=== PATIENT | male | born 2000 | race Caucasian/White ===

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

== ENCOUNTER 2020-03-09 05:03 | Emergency (ER) | payer MEDICAID, SELFPAY ==
[2020-03-09 05:04] VITALS: PULSE 100; RESP 18; TEMP 36.7; O2SAT 98; BMI 64.0
[2020-03-09 05:14] VITALS: BP 147/78
--- NOTE | 2020-03-09 05:17 | ED.VIS.GEN ---
History of Present Illness Chief Complaint: Ear Problem Informant: Patient Narrative: 20-year-old male with history of ear infections presents with left ear pain. Patient states that started about 2 days ago. He is not had a fever. It feels consistent with previous ear infections that he has had. He does not have headache. He states that he has not been swimming but has been using Q-tips. Past Medical History - Allergies and Home Meds Allergies/Adverse Reactions: Allergies No Known Allergies Allergy (Verified 09/30/18 08:26) Primary Care Physician: NOT,DEFINED [NON-STAFF] - Smoking Status: Never smoker Review of Systems General: Denies: Chills, Fever Eyes: Denies: Visual changes - bilaterally, Diplopia ENT: Reports: Left ear pain. Denies: Right ear pain, Rhinorrhea, Sore throat Cardiovascular: Denies: Chest pain Respiratory: Denies: Dyspnea, Cough Gastrointestinal: Denies: Abdominal pain, Nausea Genitourinary: Denies: Dysuria Musculoskeletal: Denies: Myalgias, Arthralgias Skin: Denies: Rash Neurological: Denies: Headache, Weakness Allergy: Denies: Uticaria Physical Exam Vital Signs/Narrative: Vital Signs Temp Pulse Resp BP Pulse Ox 03/09/20 05:14 147/78 H 03/09/20 05:04 98.1 F 100 18 98 Inital Vital Signs reviewed: Yes General: Well nourished, Well developed, No Acute Distress Head: Normocephalic, Atraumatic Eyes: Perrl ENT: Moist mucous membranes, - - Left TM is erythematous and bulging. Right TM is normal in appearance. Neck: Supple Cardiovascular: Regular rate Respiratory: No distress Skin: Normal color, No rash Neurological: Alert, Oriented x3 Psychological: Normal affect Diagnostic/Tx/Re-eval - Medical Decision Making Presents with left ear pain. On examination he has otitis media. He will be treated with Augmentin. He is given first dose in the ED. He was counseled to alternate Tylenol and anti-inflammatories. He is given return precautions. Patient stable for discharge at this time. Impression: 1. Left otitis media ED Disposition - Plan for ED Patient: Disposition: Home or Assisted Living Instructions: ED Otitis Media Antibiotic Treatment Adult Prescriptions: Amox/Clavulanate Tablet [Augmentin Tablet] 875 mg PO Q12H #20 tab Transmission Status: Received by [facility] #[id number] Referrals: NOT,DEFINED [NON-STAFF] -
[2020-03-09] MEDS: Amox/Clavulanate 875 MG Tablet PO (05:33)
== END 2020-03-09 05:36 | disposition home or self-care (01) ==
LOC: ED 05:28
PROVIDERS: Emergency Provider Student in an Organized Health Care Education/Training Program; PCP Pediatrics
DX: H66.92 Otitis media, unspecified, left ear (principal)
CPT/HCPCS: 99283

== ENCOUNTER 2020-03-11 00:08 | Emergency (ER) | payer MEDICAID, SELFPAY ==
[2020-03-11 00:09] VITALS: BP 187/107; PULSE 112; RESP 16; TEMP 36.8; O2SAT 97; BMI 64.1
--- NOTE | 2020-03-11 00:22 | ED.VIS.GEN ---
History of Present Illness Chief Complaint: Ear Problem Informant: Patient, Family Narrative: 20-year-old male presenting with left-sided ear pain. He was seen in the ED 2 days ago for inner ear pain. He was diagnosed with otitis media. He was put on Augmentin. Since that time he has had pain and swelling to the left ear externally. He has not had any fever. He has no systemic signs or symptoms. Past Medical History - Allergies and Home Meds Allergies/Adverse Reactions: Allergies No Known Allergies Allergy (Verified 09/30/18 08:26) Primary Care Physician: Carmen Cueto MD [Primary Care Provider] - Prior records reviewed: Yes Lives: With Family Smoking Status: Never smoker Alcohol: None Drugs: None Review of Systems General: Denies: Chills, Fever ENT: Reports: Left ear pain. Denies: Rhinorrhea, Sore throat Cardiovascular: Denies: Chest pain Respiratory: Denies: Dyspnea Musculoskeletal: Denies: Myalgias, Arthralgias Skin: Reports: - - Left ear erythema and swelling Neurological: Denies: Headache, Weakness Allergy: Denies: Uticaria Physical Exam Vital Signs/Narrative: Vital Signs Temp Pulse Resp BP Pulse Ox 03/11/20 00:09 98.2 F 112 H 16 187/107 H 97 General: No Acute Distress Head: Normocephalic Eyes: Perrl, EOMI ENT: Moist mucous membranes, - - Left ear is erythematous externally. The external canal is erythematous as well. It is not closed. There is no obvious drainage. Cardiovascular: Regular rate Respiratory: No distress Skin: - - Erythema and swelling of the left ear Neurological: Alert, Oriented x3 Psychological: Normal affect Diagnostic/Tx/Re-eval - Medical Decision Making Patient seen and evaluated for left ear pain. I previously saw this patient 2 days ago when he had otitis media. Since that time he is developed otitis externa. He will continue his Augmentin and be put on Cortisporin otic. At this point the external auditory canal is open and does not require a wick. Vital signs are stable and he is afebrile. Impression: 1. Left otitis externa ED Disposition - Plan for ED Patient: Disposition: Home or Assisted Living Instructions: ED Otitis Externa Prescriptions: Neomyc/Colist/Hydrocort/Thonzn [Cortisporin-Tc Ear Suspension] 10 ml OT 4X/DAY #1 drops.susp Transmission Status: Pending to [facility] #30 Referrals: Carmen Cueto MD [Primary Care Provider] -
[2020-03-11] MEDS: Neomycin Sulfate/Polymyxin/Hc Susp 10 ML Bottle 4 DRP OTIC (00:39)
== END 2020-03-11 00:44 | disposition home or self-care (01) ==
LOC: ED 00:35
PROVIDERS: Emergency Provider Student in an Organized Health Care Education/Training Program; PCP Pediatrics
DX: H60.92 Unspecified otitis externa, left ear (principal)
CPT/HCPCS: 99282

== ENCOUNTER 2020-04-30 18:14 | Emergency (ER) | payer MEDICAID, SELFPAY ==
[2020-04-30 18:15] VITALS: BP 151/90; PULSE 107; RESP 18; TEMP 36.4; O2SAT 98; BMI 62.8
--- NOTE | 2020-04-30 18:33 | ED.DCSUM_ITS ---
History of Present Illness Chief Complaint: Ear Problem Informant: Patient Onset: Today Context: Sudden Onset Timing: Intermittent Narrative: Patient is a 20-year-old male presenting for concern of a bug in his left ear. Patient states he was over at his friend's house and this morning when he woke up he felt a wiggling sensation in his ear. His mother and grandmother try to flush it out with vegetable oil and water but were unsuccessful. He feels like it went deeper in his ear. He states the movement has since stopped however he thinks that the bug still in there. He denies any bleeding from his ear. He de nies any significant pain. He has no other complaints at this time. Past Medical History - Allergies and Home Meds Allergies/Adverse Reactions: Allergies No Known Allergies Allergy (Verified 04/30/20 18:16) Primary Care Physician: Carmen Cueto MD [Primary Care Provider] - Past Medical History: None Surgical History: noncontributory Lives: With Family Smoking Status: Never smoker Review of Systems General: Denies: Chills, Fever, Sweats Eyes: Denies: Visual changes - bilaterally, Diplopia ENT: Reports: Left ear pain. Denies: Rhinorrhea, Sore throat Cardiovascular: Denies: Chest pain, Palpitations Respiratory: Denies: Dyspnea, Cough, Dyspnea on exertion Gastrointestinal: Denies: Abdominal pain, Nausea, Vomiting Skin: Denies: Rash, Wounds Neurological: Denies: Headache, Weakness, Numbness Physical Exam Vital Signs/Narrative: Vital Signs Temp Pulse Resp BP Pulse Ox 04/30/20 18:15 97.6 F L 107 H 18 151/90 H 98 Inital Vital Signs reviewed: Yes General: Well nourished, Well developed, No Acute Distress Head: Normocephalic, Atraumatic Eyes: Perrl, EOMI ENT: Moist mucous membranes, No rhinorrhea, - - Right tympanic membrane appears normal. Left tympanic membrane is occluded and there appears to be bug in the ear canal. Neck: Supple, Nontender Cardiovascular: Regular rate, Regular rhythm, No murmurs Respiratory: No distress, CTA bilaterally, Chest nontender Abdomen: Soft, Nontender Extremities: Nontender, No edema Skin: Normal color, No rash Neurological: Alert, Oriented x3, Cranial nerves II-XII grossly intact, Normal Strength, Normal Sensation Psychological: Normal affect, Normal Mood Diagnostic/Tx/Re-eval - Medical Decision Making Patient appears to have an insect in his left ear canal. Alligator forceps were used to removed it completely. Tympanic membrane is mildly erythematous and patient has erythematous changes to his ear canal. Patient will be placed on empiric ciprofloxacin drops to prevent associated otitis externa. He is otherwise well-appearing. Will follow-up with his primary care doctor as needed. ED Disposition - Plan for ED Patient: Disposition: Home or Assisted Living Diagnosis: Foreign body in left ear, initial encounter Instructions: ED EAR CANAL Foreign Body Referrals: Carmen Cueto MD [Primary Care Provider] - Additional Instructions: Apply 4 drops to the left ear twice a day for 5 to 7 days. Follow-up with your primary care provider as needed if you continue to have any ear pain. Return the emergency room with any worsening symptoms or further concerns.
[2020-04-30 19:17] VITALS: BP 141/72; PULSE 101; RESP 14; O2SAT 97
[2020-04-30] MEDS: Ciprofloxacin 0.3% 2.5ml Bottle 1 DRP OTIC (19:17)
== END 2020-04-30 19:18 | disposition home or self-care (01) ==
LOC: ED 19:04
PROVIDERS: Emergency Provider Emergency Medicine; PCP Pediatrics
DX: T16.2XXA Foreign body in left ear, initial encounter (principal); X58.XXXA Exposure to other specified factors, initial encounter; Y93.9 Activity, unspecified; Y92.9 Unspecified place or not applicable; Y99.9 Unspecified external cause status
CPT/HCPCS: 99282

== ENCOUNTER 2020-07-20 19:40 | Emergency (ER) | payer MEDICAID, SELFPAY ==
[2020-07-20 19:42] VITALS: BP 157/99; PULSE 109; RESP 16; TEMP 35.6; O2SAT 98; BMI 64.3
--- NOTE | 2020-07-20 19:52 | ED.RN ---
RN CALLED FOR EKG, NO OLD EKGS IN MUSE
[2020-07-20 20:03] VITALS: BP 143/94; PULSE 108; RESP 22; O2SAT 97
--- NOTE | 2020-07-20 20:29 | EKG12_ITS ---
Test Reason : CP Blood Pressure : / mmHG Vent. Rate : 112 BPM Atrial Rate : 112 BPM P-R Int : 154 ms QRS Dur : 098 ms QT Int : 356 ms P-R-T Axes : 051 -04 018 degrees QTc Int : 485 ms Sinus tachycardia with Fusion complexes Inferior infarct , age undetermined , age undetermined Poor R wave progression Abnormal ECG Confirmed by GIOVANNI JUAREZ, ARNAV ([id number]), editor & co founder REBECCA INMAN ([id number]) on 07/23/2020 9:37:43 AM Referred By: SAM Confirmed By:ARNAV DAVILA MD
--- NOTE | 2020-07-20 20:30 | RAD_ITS ---
STUDY: X-RAY CHEST REASON FOR EXAM: Male, 20 years old. Chest pain. Epigastric pain beginning 2 days ago. History of asthma. TECHNIQUE: Single AP portable view of the chest. COMPARISON: 09/30/2018. FINDINGS: The lungs are clear and expanded. There is no demonstrated pleural abnormality. Normal size heart. Normal mediastinum and vik. Normal visualized pulmonary arteries. Normal visualized aortic arch and descending thoracic aorta. The thoracic spine is obscured by the mediastinum. Normal visualized ribs, clavicles, and shoulders. There is no demonstrated abnormality of the visualized soft tissue structures of the upper abdomen. RAD/Chest 1 View (Portable) IMPRESSION: No acute cardiopulmonary disease or major interval change. Electronically Signed: Jamie Goldman DO at 21:00 EST Tel [phone], Service support ,
--- NOTE | 2020-07-20 20:38 | ED.VIS.GEN ---
History of Present Illness Chief Complaint: Chest Pain Informant: Patient Narrative: 2-year-old male with a history of morbid obesity and hypertension presents for the evaluation of chest pain. Tells me that a few days ago he went to see a new primary care physician and was placed on blood pressure medicines (lisinopril and hydrochlorothiazide). He tells me they began to do an EKG and he was extremely anxious because he has a lot of social anxiety and being hooked up to the EKG made things worse. He states that they told him that his heart rate was about 114. Patient states that since that time he has felt some epigastric and midsternal chest heaviness. States he can feel his heart beating hard and fast. Tells me that he is extremely anxious about being here. He denies any arm or leg symptoms. Past Medical History - Allergies and Home Meds Allergies/Adverse Reactions: Allergies No Known Allergies Allergy (Verified 07/20/20 19:42) Past Medical History: - - Morbid obesity hypertension Surgical History: noncontributory Lives: With Family Smoking Status: Never smoker Drugs: None Review of Systems General: Denies: Chills, Fever, Sweats Eyes: Denies: Visual changes - bilaterally, Diplopia ENT: Denies: Rhinorrhea, Sore throat Cardiovascular: Reports: Chest pain, Palpitations, Heart racing Respiratory: Denies: Dyspnea, Cough, Dyspnea on exertion Gastrointestinal: Denies: Abdominal pain, Nausea, Vomiting, Diarrhea, Melena, Hematochezia Genitourinary: Denies: Dysuria, Hematuria, Frequency Musculoskeletal: Denies: Back pain, Extremity Pain Skin: Denies: Rash, Wounds Neurological: Denies: Headache, Weakness, Numbness Physical Exam Vital Signs/Narrative: Vital Signs Temp Pulse Resp BP Pulse Ox 07/20/20 20:03 108 H 22 H 143/94 H 97 07/20/20 19:42 96.1 F L 109 H 16 157/99 H 98 Inital Vital Signs reviewed: Yes General: Well nourished, Well developed, Obese, No Acute Distress Head: Normocephalic, Atraumatic Eyes: Perrl, EOMI ENT: Moist mucous membranes, No rhinorrhea Neck: Supple, Nontender Cardiovascular: Regular rate, No murmurs, Tachycardia Respiratory: No distress, CTA bilaterally, Chest nontender Abdomen: Soft, Nontender, Nondistended, Normal bowel sounds Back: Nontender, Normal Inspection Extremities: Nontender, No edema Skin: Normal color, No rash Neurological: Alert, Oriented x3, Cranial nerves II-XII grossly intact, Normal Strength, Normal Sensation Psychological: Normal affect, Normal Mood Diagnostic/Tx/Re-eval Clinical Impression(s) from Imaging Studies Chest X-Ray 07/20/20 20:30 IMPRESSION: No acute cardiopulmonary disease or major interval change. Electronically Signed: Jamie Goldman DO at 21:00 EST Tel [phone], Service support , Laboratory Last Values WBC 13.4 K/mm3 (4.4-11.0) H 07/20/20 19:55 RBC 5.60 M/mm3 (4.6-6.2) 07/20/20 19:55 Hgb 17.2 g/dL (13.0-16.5) H 07/20/20 19:55 Hct 50.5 % (40-54) 07/20/20 19:55 MCV 90.2 fL (80-94) 07/20/20 19:55 MCH 30.7 pg (27.0-32.0) 07/20/20 19:55 MCHC 34.1 g/dL (32-36) 07/20/20 19:55 RDW Std Deviation 40.5 fl (35.1-43.9) 07/20/20 19:55 RDW Coeff of Alyssa 12.3 % (11.6-14.6) 07/20/20 19:55 Plt Count 351 K/mm3 (150-450) 07/20/20 19:55 MPV 11.6 fl (6.2-12.0) 07/20/20 19:55 Immature Gran % (Auto) 0.400 % (0.0-0.9) 07/20/20 19:55 Neut % (Auto) 62.2 % (47-70) 07/20/20 19:55 Lymph % (Auto) 26.9 % (19-41) 07/20/20 19:55 [place] % (Auto) 8.2 % (0-10) 07/20/20 19:55 Eos % (Auto) 1.8 % (0-5) 07/20/20 19:55 Baso % (Auto) 0.5 % (0-1) 07/20/20 19:55 Absolute Neuts (auto) 8.3 X10^3/uL (2.0-7.7) H 07/20/20 19:55 Absolute Lymphs (auto) 3.59 X10^3/uL (0.83-4.51) 07/20/20 19:55 Nucleated RBC % 0 % (0-5) 07/20/20 19:55 Sodium 136 mmol/L (136-145) 07/20/20 21:13 Potassium 3.8 mmol/L (3.5-5.1) 07/20/20 21:13 Chloride 105 mmol/L (98-107) 07/20/20 21:13 Carbon Dioxide 25.0 mmol/L (21.0-32.0) 07/20/20 21:13 Anion Gap 6 (5-15) 07/20/20 21:13 BUN 18 mg/dL (7-18) 07/20/20 21:13 Creatinine 0.90 mg/dL (0.70-1.30) 07/20/20 21:13 Estim Creat Clear Calc 139.44 ml/min 07/20/20 21:13 Est GFR (MDRD) Af Amer 137 mL/min (>60) 07/20/20 21:13 Est GFR (MDRD) Non-Af 113 mL/min (>60) 07/20/20 21:13 BUN/Creatinine Ratio 19.9 RATIO (10-20) 07/20/20 21:13 Glucose 101 mg/dL (74-106) 07/20/20 21:13 Calcium 9.7 mg/dL (8.5-10.1) 07/20/20 21:13 Troponin I < 0.015 ng/mL (<0.045) 07/20/20 21:13 - EKG Initial EKG Interpretation: Sinus Tachycardia - EKG demonstrates a sinus tachycardia at a rate of 112. There are no concerning features of ACS or ectopy - Medical Decision Making My interpretation of the plain view portable chest radiograph is no acute disease with normal mediastinal silhouette. Radiology concurs. Basic blood work showed a mild leukocytosis is nonspecific. Troponin negative. The patient received a milligram of Ativan for his anxiety. And has repeatedly asked how much longer he would be by himself in the room and how much longer the evaluation would take. At this point the patient I believe can be safely discharged home. I think most of his symptoms are related in fact to anxiety. He needs to follow-up with his doctors as scheduled return if worsening or concerns ED Disposition - Plan for ED Patient: Disposition: Home or Assisted Living Diagnosis: Palpitations, Chest pain, Anxiety about health Instructions: ED Chest Pain, Noncardiac, ED Palpitations Additional Instructions: Follow-up with primary care as scheduled. Return if worsening or concerns
[2020-07-20] MEDS: LORazepam 2 MG/ML Syringe 1 MG IV (20:39)
[2020-07-20 21:15] LABS: Absolute Lymphocyte Count 3.59 X10^3/uL (0.83-4.51); Absolute Neutrophil Count 8.3 X10^3/uL (2.0-7.7); Basophil# 0.07 X10^3/uL; Basophil% 0.5 % (0-1); Eosinophil# 0.24 X10^3/uL; Eosinophils% 1.8 % (0-5); Hematocrit 50.5 % (40-54); Hemoglobin 17.2 g/dL (13.0-16.5); Lymphocyte # 3.59 X10^3/ul (4.0); Lymphocyte % 26.9 % (19-41); Mean Corp Hgb Conc 34.1 g/dL (32-36); Mean Corpuscular Hgb 30.7 pg (27.0-32.0); Mean Corpuscular Volume 90.2 fL (80-94); Mean Platelet Vol. 11.6 fl (6.2-12.0); Monocyte# 1.09 X10^3/uL; Monocyte% 8.2 % (0-10); NRBC Flagged by Analyzer 0 % (0-5); Neutrophil # 8.31 X10^3/uL (2.7-7.7); Neutrophil % 62.2 % (47-70); Platelet Count 351 K/mm3 (150-450); RBC Distribution Width CV 12.3 % (11.6-14.6); RBC Distribution Width SD 40.5 fl (35.1-43.9); White Blood Count 13.4 K/mm3 (4.4-11.0)
[2020-07-20 21:41] LABS: Anion Gap 6 (5-15); BUN 18 mg/dL (7-18); BUN/Creat Ratio 19.9 RATIO (10-20); Calcium,Total 9.7 mg/dL (8.5-10.1); Chloride 105 mmol/L (98-107); EST Glomerular Filtration Rate 113 mL/min (>60); Est Glom Filt Rate - Afr Amer 137 mL/min (>60); Estimated Creatinine Clearance 139.44 ml/min; Glucose 101 mg/dL (74-106); Potassium 3.8 mmol/L (3.5-5.1); Sodium Level 136 mmol/L (136-145)
[2020-07-20 21:48] VITALS: BP 139/78; PULSE 108; RESP 23; O2SAT 97
== END 2020-07-20 21:52 | disposition home or self-care (01) ==
PROVIDERS: Emergency Provider Emergency Medicine
DX: R00.2 Palpitations (principal); R07.9 Chest pain, unspecified; F41.9 Anxiety disorder, unspecified; I10 Essential (primary) hypertension; E66.01 Morbid (severe) obesity due to excess calories; Z79.899 Other long term (current) drug therapy
CPT/HCPCS: 71045; 80048; 84484; 85025; 93005; 96374; 99284; A4216

== ENCOUNTER 2021-01-12 12:12 | Emergency (ER) | payer MEDICAID, SELFPAY ==
[2021-01-12 12:13] VITALS: BP 175/82; PULSE 95; RESP 16; TEMP 36.1; O2SAT 99; BMI 64.1
--- NOTE | 2021-01-12 13:37 | ED.VIS.GI ---
HPI HPI - GI History of Present Illness Chief Complaint: GI Bleed Informant: patient Abdominal Pain/Flank Pain Onset: Weeks Context: Sudden Onset Timing: Intermittent Quality: Aching, Cramping and Sharp Location: Diffuse Current Severity: Gone Maximum Severity: Severe Worsened by: Nothing Relieved by: Nothing Nausea/Vomiting/Emesis GI Symptom: Negative for Nausea and Vomiting Diarrhea/Melena/Hematochezia GI Symptom: Positive for Diarrhea and Hematochezia; Negative for Melena Onset: Weeks Stool Quality: Positive for Loose, Watery and BRB per rectum; Negative for Mucous, Black and Maroon Severity: Moderate Associated Symptoms Associated Symptoms: Negative for Dysuria, Frequency and Hematuria Narrative Narrative: -year-old male presents with diarrhea for approximately 4 to 6 weeks. He was seen by his PCP and had test for celiac disease and other causes of diarrhea, which she reports to be negative. He does not know family history and does not know if anyone has history of inflammatory bowel disorder. He has not been on antibiotics recently. He does have history of hyper tension and is on hydrochlorothiazide and levofloxacin. He does report dry mouth and thirst. He denies decreased urination. He states he had a loose stool this morning. He states it was bright red. He is stool was red. Presently has no abdominal pain. He denies joint pain or swelling. He denies rash. Prior similar symptoms: Yes Recent Illness/Hospitalization: Yes PFSH PFSH Home Medications hydrochlorothiazide 25 mg PO DAILY 07/20/20 [History Last Taken Unknown] levofloxacin 500 mg PO DAILY 07/20/20 [History Last Taken Unknown] lisinopril 20 mg PO DAILY 07/20/20 [History Last Taken Unknown] Allergy/AdvReac Type Severity Reaction Status Date / Time No Known Allergies Allergy Verified 01/12/21 12:15 other (Patient does not know past family history) no surgical history Social History (Updated 01/12/21 @ 13:[address] Franklyn Dickinson MD) adopted: No service: No current occupational status: unemployed Smoking Status: Never smoker alcohol intake: never substance use type: does not use ROS ROS ED Constitutional Constitutional ED: Denies chills, fever(s), subjective or sweats ENT ENT ED: Denies ear pain, rhinorrhea or sore throat Cardiovascular Cardiovascular: Denies chest pain, palpitations or racing heartbeat Respiratory/Chest Respiratory/Chest: Denies cough, dyspnea, dyspnea on exertion or sputum Gastrointestinal Gastrointestinal: Reports abdominal pain, constipation and diarrhea; Denies melena, nausea or vomiting Genitourinary Genitourinary ED: Denies dysuria, hematuria or urinary frequency Musculoskeletal Musculoskeletal: Denies arthralgias, back pain, myalgias or neck pain Integumentary Denies rash Neurologic Neurologic: Denies headache(s) or paresthesias Endocrine Endocrinology: Denies polydipsia, polyphagia or polyuria Hematologic/Lymphatic Hematologic/Lymphatic: Denies easy bruising EXAM Physical Exam Const Vital Signs: 01/12/21 12:13 01/12/21 13:53 01/12/21 13:59 Temperature 96.9 F L 96.9 F L Temperature Source Temporal Temporal Pulse Rate 95 95 Pulse Rate [Lying] 86 Pulse Rate [Sitting] 91 Pulse Rate [Standing] 96 Respiratory Rate 16 16 Blood Pressure 175/82 H 175/82 H Blood Pressure [Lying] 159/89 H Blood Pressure [Sitting] 175/103 H Blood Pressure [Standing] 174/90 H Blood Pressure Mean 113 113 Blood Pressure Mean [Lying] 112 Blood Pressure Mean [Sitting] 127 Blood Pressure Mean [Standing] 118 Pulse Ox 99 99 Oxygen Delivery Method Room Air Room Air Positive well nourished and well developed General Appearance ED: well developed and NAD HEENT Reports TM's clear and dry mucous membranes normocephalic and atraumatic Tympanic Membrane ED: Yes TM's clear Mouth ED: Yes dry mucous membranes Mouth: dry mucous membranes Eyes PERRL and EOMs intact bilaterally General Eye ED: Negative for pale conjunctiva or scleral icterus Neck no lymphadenopathy, supple and no JVD Resp normal respiratory effort and clear to auscultation bilaterally Cardio regular rate, regular rhythm, S1 normal heart sound, S2 normal heart sound and no murmurs GI non-tender, non-distended and no masses GI Narrative: No fissures, fistulas or hemorrhoids noted on rectal exam. Exam was difficult because of patient's body habitus. He complained of slight discomfort on rectal exam. There is no palpable masses. Prostate is normal. Stool is brown. Auscultation: hypoactive bowel sounds; Negative for normoactive bowel sounds Palpation: soft Back/Spine no CVA tenderness Lumbar Spine / Lower Back: Negative for lumbar spinal tenderness Extremity full ROM General Extremety ED: Negative for edema or tenderness General Extremity: Negative for edema Neuro CN's II-XII intact bilaterally and moves all extremities Sensorium / Orientation: alert, oriented to person, oriented to place and oriented to time Psych mental status grossly normal Skin no wounds Lesions: no lesions Rashes: no rashes MDM MDM MDM Narrative Medical decision making narrative: Clinically patient appears dehydrated. Will hydrate. Since he is on a diuretic will obtain renal function. CBC was obtained to assess for anemia and leukocytosis and/or shift. If there is eosinophilia will obtain further testing. Currently is scheduled to see GI for scope. Lab Data Attestation: I reviewed the patient's lab results. Labs: Laboratory Results - last 24 hr 01/12/21 01/12/21 14:05 14:05 WBC 14.3 H RBC 4.83 Hgb 14.6 Hct 44.0 MCV 91.1 MCH 30.2 MCHC 33.2 RDW Std Deviation 40.4 RDW Coeff of Alyssa 12.2 Plt Count 306 MPV 10.7 Immature Gran % (Auto) 0.500 Neut % (Auto) 75.0 H Lymph % (Auto) 16.5 L [place] % (Auto) 6.9 Eos % (Auto) 0.7 Baso % (Auto) 0.4 Absolute Neuts (auto) 10.7 H Absolute Lymphs (auto) 2.35 Nucleated RBC % 0 Sodium 139 Potassium 3.9 Chloride 102 Carbon Dioxide 29.0 Anion Gap 8 BUN 8 Creatinine 0.87 Estim Creat Clear Calc 144.25 Est GFR (MDRD) Af Amer 143 Est GFR (MDRD) Non-Af 118 BUN/Creatinine Ratio 9.2 L Glucose 98 Calcium 9.5 Patient's white count is elevated. Is been elevated in the past. Since this is a chronic situation we will have him follow-up with GI. He does have an appointment to see Annita at the [facility] prior to seeing endoscopist. Discharge Plan Triage Chief Complaint: GI Bleed ED Provider: Franklyn Dickinson Dx/Rx/DC Orders Clinical Impression: Hematochezia, Diarrhea Instructions: ED Diarrhea, Unknown Cause Prescriptions: No Action lisinopril 20 MG tablet 20 mg PO DAILY RF: 0 hydrochlorothiazide 25 MG tablet 25 mg PO DAILY RF: 0 levofloxacin 500 MG tablet 500 mg PO DAILY RF: 0 Primary Care Provider: Isrrael Garibay Referrals: Isrrael Garibay MD [Primary Care Provider] - As Needed Activity Restrictions/Additional Instructions: Keep appointment with Annita for GI intake and colonoscopy to evaluate your chronic diarrhea and blood with diarrhea. Disposition Disposition: Home, self care
[2021-01-12 13:53] VITALS: BP 159/89; BP 174/90; BP 175/103; PULSE 86; PULSE 91; PULSE 96
[2021-01-12 13:59] VITALS: BP 175/82; PULSE 95; RESP 16; TEMP 36.1; O2SAT 99
[2021-01-12] MEDS: 0.9% Normal Saline 1,000 ML 1000 ML IV (14:05)
[2021-01-12 14:12] LABS: Absolute Lymphocyte Count 2.35 X10^3/uL (0.83-4.51); Absolute Neutrophil Count 10.7 X10^3/uL (2.0-7.7); Basophil# 0.05 X10^3/uL; Basophil% 0.4 % (0-1); Eosinophils% 0.7 % (0-5); Hemoglobin 14.6 g/dL (13.0-16.5); Lymphocyte # 2.35 X10^3/ul (0.83-4.51); Lymphocyte % 16.5 % (19-41); Mean Corp Hgb Conc 33.2 g/dL (32-36); Mean Corpuscular Hgb 30.2 pg (27.0-32.0); Mean Corpuscular Volume 91.1 fL (80-94); Mean Platelet Vol. 10.7 fl (6.2-12.0); Monocyte# 0.98 X10^3/uL; Monocyte% 6.9 % (0-10); NRBC Flagged by Analyzer 0 % (0-5); Platelet Count 306 K/mm3 (150-450); RBC Distribution Width CV 12.2 % (11.6-14.6); RBC Distribution Width SD 40.4 fl (35.1-43.9); Red Blood Count 4.83 M/mm3 (4.6-6.2); White Blood Count 14.3 K/mm3 (4.4-11.0)
[2021-01-12 14:22] LABS: Anion Gap 8 (5-15); BUN 8 mg/dL (7-18); BUN/Creat Ratio 9.2 RATIO (10-20); Calcium,Total 9.5 mg/dL (8.5-10.1); Chloride 102 mmol/L (98-107); Creatinine, Serum 0.87 mg/dL (0.70-1.30); EST Glomerular Filtration Rate 118 mL/min (>60); Est Glom Filt Rate - Afr Amer 143 mL/min (>60); Estimated Creatinine Clearance 144.25 ml/min; Glucose 98 mg/dL (74-106); Potassium 3.9 mmol/L (3.5-5.1); Sodium Level 139 mmol/L (136-145)
[2021-01-12 16:06] VITALS: BP 162/80; PULSE 86; RESP 18
== END 2021-01-12 16:07 | disposition home or self-care (01) ==
PROVIDERS: Emergency Provider Emergency Medicine; PCP Family Medicine
DX: K92.1 Melena (principal); R19.7 Diarrhea, unspecified; E86.0 Dehydration; Z79.899 Other long term (current) drug therapy
CPT/HCPCS: 80048; 85025; 96360; 96361; 99285; J7030

== ENCOUNTER 2021-05-18 03:55 | Emergency (ER) | payer MEDICAID, SELFPAY ==
[2021-05-18] VITALS (9 sets, daily range): BP systolic 130–147; BP diastolic 75–78; PULSE 100–120; RESP 19–29; TEMP 37.6–38.8; O2SAT 88–97; BMI 62.4
--- NOTE | 2021-05-18 04:23 | EKG12_ITS ---
Test Reason : DYSRHYTHMIA Blood Pressure : / mmHG Vent. Rate : 103 BPM Atrial Rate : 103 BPM P-R Int : 136 ms QRS Dur : 090 ms QT Int : 338 ms P-R-T Axes : 012 009 010 degrees QTc Int : 442 ms Sinus tachycardia Inferior infarct , age undetermined Abnormal ECG Confirmed by RUBIA JUAREZ, EDY ([id number]), development editor REBECCA INMAN ([id number]) on 05/20/2021 9:14:59 AM Referred By: JOY Confirmed By:EDY BARKLEY MD
--- NOTE | 2021-05-18 04:25 | RAD_ITS ---
STUDY: X-RAY CHEST REASON FOR EXAM: Male, 21 years old. cough, covid exposure TECHNIQUE: PA and lateral views of the chest. COMPARISON: 07/20/2020 FINDINGS: Bilateral right greater than left hazy airspace opacities some of which are in peripheral distribution. There is low lung volume. There is no demonstrated pleural abnormality. Normal size heart. Normal mediastinum and vik. Normal visualized pulmonary arteries. Normal visualized aortic arch and descending thoracic aorta. Normal visualized thoracic spine. Normal visualized ribs, clavicles, and shoulders. Obesity. RAD/Chest PA and Lateral IMPRESSION: Right greater than left peripheral airspace disease. Imaging features can be seen with covid 19 pneumonia, but are nonspecific and may occur with a variety of infectious and noninfectious processes. Electronically Signed: Yvonne Nunes MD at 4:53 EDT , Service support ,
[2021-05-18] MEDS: Ipratropium/Albuterol Sulfate 3 ML AMPUL.NEB INHALATION (04:33)
--- NOTE | 2021-05-18 04:52 | EDS_ITS ---
HPI History of Present Illness Chief Complaint: Shortness of Breath Informant: patient Narrative Narrative: Patient presents with concern for Covid. He thinks his symptoms started on Tuesday with some nasal congestion runny nose. It then progressed to some dyspnea muscle aches. He lost taste and smell. He has diffuse myalgias. He has had some nausea but never vomited. No diarrhea. His appetite is significantly decreased though. He has known exposure to multiple family members with Covid. He did not get vaccinated. He is not a smoker. He does have a history of asthma and has noted some wheezing but does not have meds for this. He is taking his antihypertensives. Denies any travel surgery immobilization personal or family history of DVT or PE. No leg pain. He does have some soreness in his chest and back. But it is hard to differentiate this versus soreness in other areas. PFSH PFS Medical History GERD (gastroesophageal reflux disease) Hyperlipidemia Hypertension Home Medications hydrochlorothiazide 25 mg PO DAILY 07/20/20 [History Last Taken Unknown] lisinopril 20 mg PO DAILY 07/20/20 [History Last Taken Unknown] albuterol sulfate [Ventolin HFA] 2 puff INHALATION Q4H PRN PRN #1 device 05/18/21 [Rx Last Taken Unknown] dexamethasone [Decadron] 6 mg PO DAILY #9 tab 05/18/21 [Rx Last Taken Unknown] omeprazole 20 mg PO DAILY 05/18/21 [History Last Taken Unknown] Allergy/AdvReac Type Severity Reaction Status Date / Time No Known Allergies Allergy Verified 05/18/21 03:55 Surgical History S/P tonsillectomy and adenoidectomy Social History adopted: No current occupational status: unemployed Smoking Status: Never smoker alcohol intake: never substance use type: does not use ROS ROS ED Constitutional Constitutional ED: Reports chills, fever(s) and sweats Eyes Eyes: Denies blurry vision or change in vision ENT ENT ED: Reports rhinorrhea; Denies ear pain or sore throat Cardiovascular Cardiovascular: Reports chest pain; Denies orthopnea, palpitations or paroxysmal nocturnal dyspnea Respiratory/Chest Respiratory/Chest: Reports cough and dyspnea; Denies dyspnea on exertion, orthopnea, paroxysmal nocturnal dyspnea or sputum Gastrointestinal Gastrointestinal: Reports nausea; Denies abdominal pain, diarrhea or vomiting Genitourinary Genitourinary ED: Denies dysuria Musculoskeletal Musculoskeletal: Reports myalgias Integumentary Denies rash Neurologic Neurologic: Denies headache(s) Psychiatric Psychiatric: Denies anxiety or depression Endocrine Endocrinology: Denies polydipsia or polyuria Hematologic/Lymphatic Hematologic/Lymphatic: Denies easy bleeding or easy bruising Allergic/Immunologic Allergic/Immunologic ED: Denies urticaria EXAM Physical Exam Const Vital Signs: 05/18/21 03:59 05/18/21 04:02 05/18/21 04:33 Temperature 101.9 F H Temperature Source Temporal Pulse Rate 117 H 120 H Respiratory Rate 26 H 24 H Respiratory Effort Short of Breath Respiratory Depth Normal Respiratory Pattern Tachypnea Tachypnea Blood Pressure 130/78 H Blood Pressure Mean 95 Pulse Ox 97 Oxygen Delivery Method Room Air Room Air Oxygen Flow Rate (L/min) 05/18/21 05:00 05/18/21 05:09 05/18/21 05:50 Temperature 99.6 F H Temperature Source Oral Pulse Rate 106 H Respiratory Rate 29 H Respiratory Effort Respiratory Depth Respiratory Pattern Blood Pressure 147/75 H Blood Pressure Mean 99 Pulse Ox 88 93 95 Oxygen Delivery Method Room Air Nasal Cannula Nasal Cannula Oxygen Flow Rate (L/min) 2 2 05/18/21 06:16 Temperature Temperature Source Pulse Rate Respiratory Rate Respiratory Effort Respiratory Depth Respiratory Pattern Blood Pressure Blood Pressure Mean Pulse Ox 92 Oxygen Delivery Method Room Air Oxygen Flow Rate (L/min) Positive well nourished, well developed and obese General Appearance ED: well developed and NAD Nutritional Appearance: obese HEENT Reports moist mucous membranes Eyes General Eye ED: Negative for pale conjunctiva or scleral icterus Neck no lymphadenopathy and no JVD Resp normal respiratory effort and clear to auscultation bilaterally Auscultation: rhonchi and wheezes; Negative for rales Cardio regular rhythm Cardio Narrative: Does have some tenderness on his chest. More on the right than the left. No skin changes. Rate: tachycardic GI non-tender and non-distended Palpation: soft Back/Spine normal to inspection Back/Spine Narrative: Patient does have some tenderness on chest and back. This is nonfocal. Extremity normal to inspection General Extremety ED: Negative for edema or tenderness General Extremity: Negative for edema Neuro oriented x3 Sensorium / Orientation: alert Psych mental status grossly normal Skin Lesions: no lesions Rashes: no rashes MDM MDM MDM Narrative Medical decision making narrative: Patient's blood work shows normal CBC. D- dimer is negative. Electrolytes show no marked abnormalities. Chest x-ray does show some airspace disease consistent with COVID-19. Patient did have desaturations to about 89% on room air while laying in bed. However, he was resting at the time and he likely has sleep apnea. When he is awake he never drops. We got him up and walked him on room air. He started at 93% and went up to 100%. He actually did surprisingly well. I think we can get him home. I told the patient that he has risk factors for worsening. He may still need to come in the hospital and be admitted. He still could get sick from this. I will write him for Decadron as he did have that one episode of hypoxia and he also has background asthma. I will write for an albuterol inhaler. I have talked to him about getting an O2 sat monitor. I have also placed an order for monoclonal antibody therapy and I talked to him about this. Lab Data Attestation: I reviewed the patient's lab results. Labs: Laboratory Results - last 24 hr 05/18/21 05/18/21 05/18/21 04:50 04:50 04:50 WBC 4.4 RBC 4.98 Hgb 14.9 Hct 44.3 MCV 89.0 MCH 29.9 MCHC 33.6 RDW Std Deviation 42.4 RDW Coeff of Alyssa 13.0 Plt Count 160 MPV 11.1 Immature Gran % (Auto) 0.200 Neut % (Auto) 72.3 H Lymph % (Auto) 21.8 [place] % (Auto) 5.5 Eos % (Auto) 0.0 Baso % (Auto) 0.2 Absolute Neuts (auto) 3.1 Absolute Lymphs (auto) 0.95 Nucleated RBC % 0 D-Dimer Quant (PE/DVT) 0.47 Sodium 134 L Potassium 3.6 Chloride 98 Carbon Dioxide 27.0 Anion Gap 9 BUN 9 Creatinine 0.98 Estim Creat Clear Calc 126.99 Est GFR (MDRD) Af Amer 123 Est GFR (MDRD) Non-Af 102 BUN/Creatinine Ratio 9.1 L Glucose 126 H Calcium 8.3 L Radiography Diagnostic Testing: Clinical Impression(s) from Imaging Studies Chest X-Ray 05/18/21 04:25 IMPRESSION: Right greater than left peripheral airspace disease. Imaging features can be seen with covid 19 pneumonia, but are nonspecific and may occur with a variety of infectious and noninfectious processes. Electronically Signed: Yvonne Nunes MD at 4:53 EDT , Service support , EKG Initial EKG: Comments: EKG done for dyspnea and read by me shows sinus rhythm with tachycardic rate at 103. No ectopy. No acute ST elevation or depression. Isolated Q-wave in lead III. MD interval, QRS duration and QTc normal. Discharge Plan Triage Chief Complaint: Shortness of Breath ED Provider: Pro Long Dx/Rx/DC Orders Clinical Impression: Pneumonia due to 2019 novel coronavirus, Acute bronchospasm Instructions: Caring for Someone Who Has COVID-19 Prescriptions: New dexamethasone [Decadron] 6 mg tablet 6 mg PO DAILY Qty: 9 RF: 0 albuterol sulfate [Ventolin HFA] 90 mcg/actuation HFA aerosol inhaler 2 puff inhalation Q4H PRN PRN (Reason: Wheezing) Qty: 1 RF: 0 No Action lisinopril 20 MG tablet 20 mg PO DAILY RF: 0 hydrochlorothiazide 25 MG tablet 25 mg PO DAILY RF: 0 omeprazole 20 mg capsule,delayed release(DR/EC) 20 mg PO DAILY RF: 0 Other Ambulatory Orders: COVID Outpatient Monoclonal Antibody Referral (Routine) Timeframe: 1 Day Facility: [facility] - Location: [facility] Ordered By: Dr. Pro Long Primary Care Provider: Isrrael Garibay Referrals: Isrrael Garibay MD [Primary Care Provider] - 3-5 Days if not improving Disposition Disposition: Home, Self Care
[2021-05-18] MEDS: Acetaminophen 500 MG Tablet 1000 MG PO (05:03)
[2021-05-18 05:08] LABS: Absolute Lymphocyte Count 0.95 X10^3/uL (0.83-4.51); Absolute Neutrophil Count 3.1 X10^3/uL (2.0-7.7); Basophil# 0.01 X10^3/uL; Basophil% 0.2 % (0-1); Hematocrit 44.3 % (40-54); Hemoglobin 14.9 g/dL (13.0-16.5); Lymphocyte # 0.95 X10^3/ul (0.83-4.51); Lymphocyte % 21.8 % (19-41); Mean Corp Hgb Conc 33.6 g/dL (32-36); Mean Corpuscular Hgb 29.9 pg (27.0-32.0); Mean Platelet Vol. 11.1 fl (6.2-12.0); Monocyte# 0.24 X10^3/uL; Monocyte% 5.5 % (0-10); NRBC Flagged by Analyzer 0 % (0-5); Neutrophil # 3.14 X10^3/uL (2.7-7.7); Neutrophil % 72.3 % (47-70); Platelet Count 160 K/mm3 (150-450); RBC Distribution Width SD 42.4 fl (35.1-43.9); Red Blood Count 4.98 M/mm3 (4.6-6.2); White Blood Count 4.4 K/mm3 (4.4-11.0)
[2021-05-18 05:28] LABS: Anion Gap 9 (5-15); BUN 9 mg/dL (7-18); BUN/Creat Ratio 9.1 RATIO (10-20); Calcium,Total 8.3 mg/dL (8.5-10.1); Chloride 98 mmol/L (98-107); Creatinine, Serum 0.98 mg/dL (0.70-1.30); D-Dimer Quantitative (DVT/PE) 0.47 FEU/ug/m (0.27-0.49); EST Glomerular Filtration Rate 102 mL/min (>60); Est Glom Filt Rate - Afr Amer 123 mL/min (>60); Estimated Creatinine Clearance 126.99 ml/min; Glucose 126 mg/dL (74-106); Potassium 3.6 mmol/L (3.5-5.1); Sodium Level 134 mmol/L (136-145)
[2021-05-18] MEDS: dexAMETHasone 10 MG/ML Vial 6 MG IV (05:48)
== END 2021-05-18 07:02 | disposition home or self-care (01) ==
PROVIDERS: Emergency Provider Emergency Medicine; PCP Family Medicine
DX: U07.1 COVID-19 (principal); J12.82 Pneumonia due to coronavirus disease 2019; R09.02 Hypoxemia; I10 Essential (primary) hypertension; E78.5 Hyperlipidemia, unspecified; J45.909 Unspecified asthma, uncomplicated; K21.9 Gastro-esophageal reflux disease without esophagitis; E66.9 Obesity, unspecified; Z79.52 Long term (current) use of systemic steroids; Z79.899 Other long term (current) drug therapy
CPT/HCPCS: 71046; 80048; 85025; 85379; 87426; 93005; 94640; 96374; 99284; A4216

== ENCOUNTER 2022-09-01 13:57 | Emergency (ER) | payer OTHER, MEDICAID, SELFPAY ==
[2022-09-01 13:58] VITALS: BP 154/94; PULSE 95; RESP 16; TEMP 36.8; O2SAT 97; BMI 59.6
--- NOTE | 2022-09-01 14:10 | EX.ED.GENINJ ---
HPI History of Present Illness Chief Complaint: Laceration Informant: patient Narrative Narrative: 22-year-old male presenting with laceration to right index finger. 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 He states the knife slipped and cut his right index finger. Last tetanus is unknown. No other injuries. Tetanus Immunization: Unknown [facility] Medical History GERD (gastroesophageal reflux disease) Hyperlipidemia Hypertension Home Medications hydrochlorothiazide 25 mg tablet 25 mg PO DAILY 07/20/20 [History Last Taken Unknown] lisinopril 20 mg tablet 20 mg PO DAILY 07/20/20 [History Last Taken Unknown] albuterol sulfate 90 mcg/actuation aerosol inhaler (Ventolin HFA) 2 puff inhalation Q4H PRN PRN Wheezing #1 device 05/18/21 [Rx Last Taken Unknown] dexamethasone 6 mg tablet (Decadron) 6 mg PO DAILY #9 tabs 05/18/21 [Rx Last Taken Unknown] omeprazole 20 mg capsule,delayed release 20 mg PO DAILY 05/18/21 [History Last Taken Unknown] Allergy/AdvReac Type Severity Reaction Status Date / Time No Known Allergies Allergy Verified 09/01/22 14:00 Surgical History S/P tonsillectomy and adenoidectomy Social History adopted: No current occupational status: unemployed Smoking Status: Never smoker alcohol intake: never substance use type: does not use ROS ROS ED Constitutional Constitutional ED: Denies fever(s) Integumentary Reports other Details: right index finger laceration EXAM Physical Exam Const Vital Signs: 09/01/22 13:58 Temperature 98.2 F Temperature Source Temporal Pulse Rate 95 Respiratory Rate 16 Blood Pressure 154/94 H Blood Pressure Mean 114 Pulse Ox 97 Oxygen Delivery Method Room Air Positive well nourished and well developed General Appearance ED: well developed Chest Wall inspection of chest normal Resp normal respiratory effort Cardio regular rate and regular rhythm Extremity Extremity Narrative: 1.5 cm laceration right index fingerpad. Tendon function is normal. Nail intact. Normal cap refill. Active full range of motion. Normal sensation. Neuro oriented x3 Sensorium / Orientation: alert Psych mental status grossly normal MDM MDM MDM Narrative Medical decision making narrative: Patient was given tetanus IM. Wound was irrigated with normal saline. Anesthesized with lidocaine. 2, 5-0 simple sutures were placed. Patient tolerated this well. Advised wound care instructions. Advised to follow-up with [facility]. Discharge Plan Triage Chief Complaint: Laceration ED Provider: Addie Dorsey Dx/Rx/DC Orders Clinical Impression: Laceration of right index finger Instructions: ED Laceration, Hand: All Closures Prescriptions: No Action lisinopril 20 MG tablet 20 mg PO DAILY hydrochlorothiazide 25 MG tablet 25 mg PO DAILY omeprazole 20 mg capsule,delayed release(DR/EC) 20 mg PO DAILY dexamethasone [Decadron] 6 mg tablet 6 mg PO DAILY Qty: 9 0RF albuterol sulfate [Ventolin HFA] 90 mcg/actuation HFA aerosol inhaler 2 puff inhalation Q4H PRN PRN (Reason: Wheezing) Qty: 1 0RF Primary Care Provider: Isrrael Garibay Referrals: [facility]] - Isrrael Garibay MD [Primary Care Provider] - Disposition Disposition: Home, Self Care
--- NOTE | 2022-09-01 14:10 | ED.RN ---
Aware to go to the [facility] for his urine testing for workman comp immediately after leaving the er
[2022-09-01] MEDS: Diphth,Pertuss(Acell),Tet Vac 0.5 ML Vial IM (14:20)
[2022-09-01] MEDS: Lidocaine 1% (20 ml mdv) 20 ML Vial INFILT (14:22)
== END 2022-09-01 14:47 | disposition home or self-care (01) ==
PROVIDERS: Emergency Provider Emergency Medicine; PCP Family Medicine; Visit Provider Emergency Medicine
DX: S61.210A Laceration without foreign body of right index finger without damage to nail, initial encounter (principal); W26.0XXA Contact with knife, initial encounter; Y99.0 Civilian activity done for income or pay; Z23 Encounter for immunization; E78.5 Hyperlipidemia, unspecified; I10 Essential (primary) hypertension; K21.9 Gastro-esophageal reflux disease without esophagitis; Z79.899 Other long term (current) drug therapy
CPT/HCPCS: 12001; 90471; 90715; 99283

== ENCOUNTER 2024-01-13 06:40 | Emergency (ER) | payer MEDICAID, SELFPAY ==
[2024-01-13 06:40] VITALS: BP 153/83; PULSE 85; RESP 16; TEMP 36.2; O2SAT 98; BMI 61.9
[2024-01-13 06:43] VITALS: BP 153/83; PULSE 85; RESP 16; TEMP 36.2; O2SAT 98
--- NOTE | 2024-01-13 07:14 | EDS_ITS ---
HPI History of Present Illness Chief Complaint: Dental Detail of Chief Complaint: Dental pain Informant: patient Narrative Narrative: Patient presents with dental pain that he had for about 3 days. Patient went to the dentist yesterday and apparently had this tooth shaved down was told he would need a crown. He tells me he was supposed to get an antibiotic but did not. He continues to complain of pain. He describes some swelling to the lower jaw. He denies fevers chills or sweats. Patient has history of hypertension. [facility] Medical History GERD (gastroesophageal reflux disease) Hyperlipidemia Hypertension Home Medications ?Medication ?Instructions ?Recorded ?Last Taken ?Type hydrochlorothiazide 25 mg tablet 25 mg PO DAILY 07/20/20 Unknown History lisinopril 20 mg tablet 20 mg PO DAILY 07/20/20 Unknown History albuterol sulfate 90 mcg/actuation 2 puff inhalation Q4H PRN PRN 05/18/21 Unknown Rx aerosol inhaler (Ventolin HFA) Wheezing #1 device omeprazole 20 mg capsule,delayed 20 mg PO DAILY 05/18/21 Unknown History release clindamycin HCl 300 mg capsule 300 mg PO Q6H #40 CAPSULES 01/13/24 Unknown Rx (Cleocin HCl) hydrocodone-acetaminophen 5-325mg 1 tab PO Q4H PRN PRN Pain 2 days 01/13/24 Unknown Rx 5mg-325mg #10 TABLETS metoprolol succinate 50 mg 50 mg PO DAILY 01/13/24 Unknown History tablet,extended release 24 hr sertraline 50 mg tablet 50 mg PO DAILY 01/13/24 Unknown History Allergy/AdvReac Type Severity Reaction Status Date / Time No Known Allergies Allergy Verified 09/01/22 14:00 Surgical History S/P tonsillectomy and adenoidectomy Social History adopted: No current occupational status: unemployed Smoking Status: Never smoker alcohol intake: never substance use type: does not use ROS ROS ED Review of Systems ROS Unobtainable: other Constitutional Constitutional ED: Reports lethargy; Denies chills, fever(s), sweats or weight loss Eyes Eyes: Denies blurry vision, change in vision or diplopia ENT ENT ED: Reports other Details: Dental pain ; Denies rhinorrhea or sore throat Cardiovascular Cardiovascular: Denies chest pain, orthopnea or racing heartbeat Respiratory/Chest Respiratory/Chest: Denies cough, dyspnea, dyspnea on exertion, orthopnea or sputum Gastrointestinal Gastrointestinal: Denies abdominal pain, diarrhea, nausea or vomiting Genitourinary Genitourinary ED: Denies dysuria, hematuria or urinary frequency Musculoskeletal Musculoskeletal: Denies arthralgias, back pain, myalgias or neck pain Integumentary Denies abscess, Abrasions or rash Neurologic Neurologic: Denies headache(s) or weakness Psychiatric Psychiatric: Denies anxiety, depression or suicidal thoughts Endocrine Endocrinology: Denies polydipsia, polyphagia or polyuria Hematologic/Lymphatic Hematologic/Lymphatic: Denies easy bleeding, easy bruising or lymphadenopathy Allergic/Immunologic Allergic/Immunologic ED: Denies mouth swelling, tongue swelling or urticaria EXAM Physical Exam Const Vital Signs: 01/13/24 06:40 01/13/24 06:43 Temperature 97.1 F L 97.1 F L Temperature Source Temporal Temporal Pulse Rate 85 85 Respiratory Rate 16 16 Blood Pressure 153/83 H 153/83 H Blood Pressure Mean 106 106 Pulse Ox 98 98 Oxygen Delivery Method Room Air Room Air Positive well nourished and well developed General Appearance ED: well developed and NAD HEENT Reports TM's clear and moist mucous membranes HEENT Narrative: Dentition-patient has tenderness to palpation over tooth #17. The tooth appears to be cracked. No gingival erythema or abscess noted. He has some mild tenderness left submandibular region without any masses or induration noted. There is no erythema or cellulitic changes. No trismus on exam. He is able to touch the tongue to the roof of the mouth and the floor the mouth is soft. normocephalic and atraumatic; Negative for trauma or tenderness Tympanic Membrane ED: Yes TM's clear Eyes PERRL and EOMs intact bilaterally General Eye ED: Negative for pale conjunctiva or scleral icterus Neck no lymphadenopathy, supple and no JVD General: Negative for tenderness Chest Wall inspection of chest normal and palpation of chest normal Chest: Negative for tenderness Resp normal respiratory effort and clear to auscultation bilaterally Effort and Inspection: Negative for respiratory distress or pain with movement Auscultation: Negative for rhonchi, wheezes or diminished lung sounds Cardio regular rate, regular rhythm, S1 normal heart sound, S2 normal heart sound and no murmurs Peripheral Pulses: pulses 2+ throughout GI normal to inspection, nondistended, normoactive bowel sounds, soft to palpation, non-tender, non-distended and no masses Back/Spine no CVA tenderness and no thoracic nor lumbar tenderness Extremity normal to inspection General Extremety ED: Negative for edema General Extremity: Negative for edema Neuro oriented x3, CN's II-XII intact bilaterally, no sensory deficits noted and gait normal Sensorium / Orientation: awake, alert, oriented to person, oriented to place and oriented to time Motor Exam: strength 5/5 throughout and strength abnormal Psych mental status grossly normal Skin no rashes or lesions noted and no wounds MDM MDM MDM Narrative Medical decision making narrative: Patient presents with dental pain x 3 days. Was started on clindamycin and will write a prescription for few [place] for pain. Patient advised to follow-up with his dentist. Advised return if worsening pain, increased swelling, fevers, or condition worsening way. Discharge Plan Triage Chief Complaint: Dental ED Provider: Alessia Miles Dx/Rx/DC Orders Clinical Impression: Pain, dental Instructions: ED Dental Pain Prescriptions: New clindamycin HCl [Cleocin HCl] 300 mg capsule 300 mg PO Q6H Qty: 40 0RF hydrocodone-acetaminophen 5-325 mg tablet 1 tab PO Q4H PRN PRN (Reason: Pain) 2 Days Qty: 10 0RF No Action lisinopril 20 MG tablet 20 mg PO DAILY hydrochlorothiazide 25 MG tablet 25 mg PO DAILY omeprazole 20 mg capsule,delayed release(DR/EC) 20 mg PO DAILY albuterol sulfate [Ventolin HFA] 90 mcg/actuation HFA aerosol inhaler 2 puff inhalation Q4H PRN PRN (Reason: Wheezing) Qty: 1 0RF metoprolol succinate 50 mg tablet extended release 24 hr 50 mg PO DAILY sertraline 50 mg tablet 50 mg PO DAILY Primary Care Provider: Isrrael Garibay Referrals: Isrrael Garibay MD [Primary Care Provider] - Activity Restrictions/Additional Instructions: Follow-up with your dentist within the next 3 to 5 days. Print Language: Polish Disposition Disposition: Home, Self Care
--- NOTE | 2024-01-13 07:22 | ED.RN ---
Patient was discharged prior to this nurse seeing and acknowledging the order for Cleocin to be given in the ED. Patient has prescription for Cleocin called into pharmacy, patient was instructed on proper usage and to take until gone w/ f/u to dentist.
[2024-01-13 07:23] VITALS: BP 149/81; PULSE 87; RESP 14; TEMP 36.7; O2SAT 99
== END 2024-01-13 07:34 | disposition home or self-care (01) ==
LOC: ED 07:27
PROVIDERS: Emergency Provider Emergency Medicine; PCP Family Medicine; Visit Provider Emergency Medicine
DX: K08.89 Other specified disorders of teeth and supporting structures (principal); I10 Essential (primary) hypertension; E78.5 Hyperlipidemia, unspecified; K21.9 Gastro-esophageal reflux disease without esophagitis; Z79.899 Other long term (current) drug therapy
CPT/HCPCS: 99282